=== PATIENT | female | born 1970 | race Two or more races ===

== ENCOUNTER 2018-04-09 05:30 | Day surgery (SDC) | payer OTHER ==
[~2018-04-09 05:30] MED LIST: SYNTHROID50 MCG PO
== END 2018-04-09 13:00 | disposition home or self-care (01) ==
LOC: CIR.AMB 05:30 → RECOVERY 11:22 → EDSTATUS 11:22 → CIR.AMB 11:35
DX: N84.0 Polyp of corpus uteri (principal)

== ENCOUNTER 2020-10-19 11:44 | Outpatient (CLI) | payer OTHER | END 2020-10-19 11:46 | disposition home or self-care (01) | LOC: SONOGRAMA 11:44 | PROVIDERS: ATTEND Pathology Anatomic Pathology & Clinical Pathology | DX: E04.2 Nontoxic multinodular goiter (principal) ==